=== PATIENT | male | born 1975 | race Caucasian/White ===

== ENCOUNTER 2018-08-11 10:01 | Emergency (ER) | payer SELFPAY ==
[~2018-08-11] VITALS: Ht 172.7 cm; Wt 96.6 kg
[2018-08-11 10:04] VITALS: BP 152/106; Ht 172.7 cm; Wt 96.6 kg
== END 2018-08-11 11:40 | disposition home or self-care (01) ==
LOC: ED 10:01
DX: S39.012A Strain of muscle, fascia and tendon of lower back, initial encounter (principal); X50.0XXA Overexertion from strenuous movement or load, initial encounter; Y93.89 Activity, other specified; Y92.89 Other specified places as the place of occurrence of the external cause; Y99.0 Civilian activity done for income or pay
CPT/HCPCS: J1885